=== PATIENT | male | born 1945 | race American Indian/Alaskan Native ===

== ENCOUNTER 2019-12-21 06:08 | Day surgery (SDC) | payer MEDICARE ==
[2019-12-17 10:16] LABS: Hematocrit 38.9 % (35.5-45.6); Hemoglobin 12.9 gm/dl (11.8-15.2); Mean Corpuscular HGB Conc 33 % (32-34); Mean Corpuscular Volume 84 fl (84-94); Red Blood Count 4.65 M/mm3 (3.65-5.03); Red Cell Distribution Width 15.3 % (13.2-15.2)
[2019-12-17 10:38] LABS: Alanine Aminotransferase 16 units/L (7-56); BUN/Creatinine Ratio 14; Blood Urea Nitrogen 17 mg/dL (9-20); Hemolysis Index 8
[2019-12-17 11:51] LABS: Platelet Count 173 K/mm3 (140-440)
[~2019-12-21 06:08] MED LIST: BACTERIOSTATIC SODIUM CHLORIDE 0.9% 30 ML VIAL INFILTRATI ONE; LACTATED RINGERS 1,000 ML IV SCH; ceFAZolin/STERILE WATER 2 GM/20 ML SYRINGE IV NR
[2019-12-21] MEDS ORDERED: MIDAZOLAM 2 MG/2 ML INJ IV NR (06:58)
--- NOTE | 2019-12-21 06:58 | Anesthesia Consultation ---
Anesthesia Consult and Med Hx Date of service: 12/21/19 - Airway Anesthetic Teeth Evaluation: Good ROM Head & Neck: Adequate Mental/Hyoid Distance: Adequate Mallampati Class: Class II Intubation Access Assessment: Good - Pulmonary Exam CTA: Yes - Cardiac Exam Cardiac Exam: RRR - Pre-Operative Health Status ASA Pre-Surgery Classification: ASA2 Proposed Anesthetic Plan: General - Pulmonary Hx Smoking: Yes (QUIT >30 YRS AGO) Hx Asthma: No SOB: No COPD: No Hx Pneumonia: No Hx Sleep Apnea: Yes (NOT USING CPAP) - Cardiovascular System Hx Hypertension: Yes Hx Heart Attack/AMI: No Hx Cardia Arrhythmia: Yes (BRADYCARDIA) Hx Pacemaker: No Hx Internal Defibrillator: No Hx Heart Murmur: No - Central Nervous System Hx Back Pain: No Hx Psychiatric Problems: No - Gastrointestinal Hx Gastroesophageal Reflux Disease: Yes - Endocrine Hx End Stage Renal Disease: No Hx Cirrhosis: No Hx Liver Disease: No Hx Non-Insulin Dependent Diabetes: Yes (diet control) - Hematic Hx Anemia: No Hx Sickle Cell Disease: No - Other Systems Hx Alcohol Use: Yes (OCCASIONAL WINE) Hx Substance Use: No Hx Cancer: Yes (COLON POLYP REMOVED(MALIGNANT) 1996, PROSTATE) Hx Obesity: No
--- NOTE | 2019-12-21 06:58 | Anesthesia Day of Surgery ---
Anesthesia Day of Surgery - Day of Surgery Patient Examined: Yes Patient H&P Reviewed: Yes Patient is NPO: Yes Beta Blockers: Yes
[2019-12-21] MEDS ORDERED: fentaNYL 100 MCG/2 ML INJ ONE (07:22)
[2019-12-21] MEDS ORDERED: propofoL 200 MG/20 ML VIAL IV ONE (07:22)
[2019-12-21] MEDS ORDERED: ROCURONIUM 50 MG/5 ML INJ IV ONE (07:22)
[2019-12-21] MEDS ORDERED: fentaNYL 100 MCG/2 ML INJ IV PRN (07:30)
[2019-12-21] MEDS ORDERED: MANNITOL/SORBITOL SOLUTION 3,000 ML IRRIG.SOLN IR ONE (08:15)
[2019-12-21] MEDS ORDERED: ONDANSETRON 4 MG/2 ML INJ ONE (08:23)
[2019-12-21] MEDS ORDERED: NEOSTIGMINE 10MG/10 ML INJ MDV ONE (08:23)
[2019-12-21] MEDS ORDERED: GLYCOPYRROLATE 0.4 MG/2 ML INJ ONE ×2 (08:23→09:16)
--- NOTE | 2019-12-21 08:34 | Short Stay Summary ---
Short Stay Documentation Date of service: 12/21/19 - History H&P: obtained from office - Allergies and Medications Current Medications: Allergies JONATHAN Inhibitors Allergy (Verified 12/26/15 09:21) Angioedema valsartan Allergy (Verified 12/26/15 09:21) Angioedema Home Medications Medication Instructions Recorded Confirmed Last Taken Type Aspirin EC [Halfprin EC] 81 mg PO DAILY 03/03/14 12/17/19 12/15/19 History Simvastatin 20 mg PO DAILY 03/03/14 12/17/19 12/20/19 History Cholecalciferol Vit D3 [Vitamin D3] 4,000 unit PO QDAY 12/20/15 12/17/19 12/20/19 History Roland-3 Fatty Acids/Fish Oil [Fish 16,000 mg PO DAILY 12/20/15 12/17/19 12/20/19 History Oil] Centrum Silver Tablet 1 tab PO DAILY 12/16/19 12/16/19 12/20/19 History Tylenol Pm Ex-Strength Caplet 1 cap PO PRN 12/16/19 12/16/19 12/20/19 History amLODIPine 10 mg PO DAILY 12/16/19 12/21/19 12/21/19 05:00 History carvediloL [Coreg] 12.5 mg PO BID 12/16/19 12/16/19 12/20/19 History hydroCHLOROthiazide 12.5 mg PO DAILY 12/16/19 12/16/19 12/20/19 History [Hydrochlorothiazide] Active Medications Cefazolin Sodium (Ancef/Sterile Water 2 Gm/20 Ml) 2 gm IV PREOP NR Stop: 12/21/19 23:00 Fentanyl (Sublimaze) 50 mcg IV Q5MIN PRN PRN Reason: Pain , Severe (7-10) Stop: 12/21/19 22:00 Lactated Ringer's (Lactated Ringers) 1,000 mls @ 100 mls/hr IV DIRECT HANNAH Stop: 12/21/19 23:59 Last Admin: 12/21/19 06:45 Dose: 100 mls/hr Documented by: Midazolam HCl (Versed) 2 mg IV ONCE NR Stop: 12/21/19 22:00 Last Admin: 12/21/19 07:09 Dose: 2 mg Documented by: - Brief post op/procedure progress note Date of procedure: 12/21/19 Pre-op diagnosis: bladder tumor Post-op diagnosis: same Procedure: cysto, rt rpg, removal of bladder tumor & fulgeration Anesthesia: CANDEA Surgeon: USAMA PENA Pathology: list (bladder tumor) Specimen disposition: to lab Condition: stable - Hospital course Hospital course: bactrim, pyridium, norco on chart - Disposition Condition at discharge: Stable Disposition: DC-01 TO HOME OR SELFCARE Short Stay Discharge Plan Follow up with: YUMI REILLY MD [Primary Care Provider] - 7 Days
--- NOTE | 2019-12-21 09:02 | Operative Report ---
PREOPERATIVE DIAGNOSIS: Left-sided bladder tumor, less than 2.5 cm. POSTOPERATIVE DIAGNOSIS: Left-sided bladder tumor, less than 2.5 cm. PROCEDURE: Cystoscopy, right retrograde pyelogram, removal of bladder tumor and fulguration. SURGEON: Dimas Camacho MD ANESTHESIA: General. ESTIMATED BLOOD LOSS: Minimal. FLUIDS: Crystalloid. COMPLICATIONS: No complications. INDICATIONS: This patient is a 74-year-old gentleman known to our service, history of prostate cancer and erectile dysfunction, status post inflatable penile implant. He has had a history of bladder tumors in the past that was resected endoscopically. He underwent recent surveillance cystoscopy and was found to have a left-sided bladder tumor. DESCRIPTION OF PROCEDURE: The patient was taken to the operative suite, placed in a supine position. After adequate general anesthesia, placed in a dorsal lithotomy position, prepped and draped in a sterile fashion. Cystourethroscopy was performed with a 22-[place] Storz cystoscope. The penile prosthesis had to be deflated to allow better movement of the scope. Prostate was absent. Bladder, no tumors or stones were noted. Both ureteral orifices in normal position. Bladder tumor just lateral to the left ureteral orifice. Right retrograde pyelogram was obtained with an 8-[place] African Tawana catheter and 8 mL of contrast. No filling defects or obstruction. Left retrograde pyelogram was not obtained, did not want to see the right kidney. Due to his penile prosthesis, it was difficult to place a 24-South African resectoscope for removal and therefore used a cold cup biopsy forceps to remove the bladder tumor. It was sent for routine pathologic evaluation. Hollie on 30 was able to cauterize the base and a rim of 5 mm of normal tissue to minimize the risk of satellite lesions. The patient tolerated the procedure well. Bladder was drained. He was extubated and taken to recovery room. He will go home on Pyridium, Bactrim and [place]. JOB# [id number] [facility]
[2019-12-21] MEDS ORDERED: GLYCOPYRROLATE 0.4 MG/2 ML INJ IV ONE (09:20)
[2019-12-21 09:35] VITALS: BP 141/64
--- NOTE | 2019-12-21 12:28 | Post Anesthesia Evaluation ---
- Post Anesthesia Evaluation Patient Participated: Yes Airway Patent: Yes Stable Respiratory Function: Yes Nausea/Vomiting: No Temp > 96.8F: Yes Pain Manageable: Yes Adequeate Hydration: Yes Anesthesia Complications: No
--- NOTE | 2019-12-21 15:23 | Fluoroscopy Report ---
INTRAOPERATIVE FLUOROSCOPY INDICATION / CLINICAL INFORMATION: BLADDER CANCER. TECHNIQUE: Intraoperative spot images were obtained during the procedure. FINDINGS: Intraoperative fluoroscopy images for retrograde urography. See operative/procedure note by performing physician for full details. Fluoroscopy Time: 6 seconds. Fluoroscopy Images: 6. Signer Name: Joel Beck MD Signed: 12/21/2019 3:19 PM Workstation Name: [id number]
== END 2019-12-21 06:09 | disposition home or self-care (01) ==
LOC: OR 06:08
PROVIDERS: ATTEND Urology
DX: C67.2 Malignant neoplasm of lateral wall of bladder (principal); Z20.828 Contact with and (suspected) exposure to other viral communicable diseases; C67.6 Malignant neoplasm of ureteric orifice; I42.9 Cardiomyopathy, unspecified; E78.00 Pure hypercholesterolemia, unspecified; I10 Essential (primary) hypertension; G47.30 Sleep apnea, unspecified; K21.9 Gastro-esophageal reflux disease without esophagitis; M19.90 Unspecified osteoarthritis, unspecified site; E11.9 Type 2 diabetes mellitus without complications; Z79.899 Other long term (current) drug therapy; Z79.82 Long term (current) use of aspirin; Z88.8 Allergy status to other drugs, medicaments and biological substances; Z87.891 Personal history of nicotine dependence; Z85.46 Personal history of malignant neoplasm of prostate; Z87.440 Personal history of urinary (tract) infections; Z98.890 Other specified postprocedural states; Z72.89 Other problems related to lifestyle
CPT/HCPCS: 36415; 52235; 74420; 80053; 82962; 85027; 88305; J0690; J2250; J2405; J2704; J2710; J3010; J7120; Q9967; U0003